=== PATIENT | female | born 1995 | race Caucasian/White ===

== ENCOUNTER 2019-09-20 08:39 | Emergency (ER) | payer OTHER ==
--- NOTE | 2019-09-20 09:04 | ED Physician Documentation ---
PD HPI ABD PAIN - Stated complaint Stated Complaint: LOWER ABD PX - History obtained from History obtained from: Patient - History of Present Illness Timing - onset: How many months ago (1) Timing - duration: Months (1) Timing - details: Gradual onset Severity Comments: mild to moderate Quality: Cramping, Other (lower abdomen) Location: Other (lower abdomen) Radiation: Other (low back, bilaterally) Improved by: Other (nothing) Worsened by: Other (her apron touching her abdomen at work) Associated symptoms: Other (denies nausea, vomiting, diarrhea, constipation, dysuria, hematuria, vaginal bleeding or discharge) Similar symptoms before: Has not had sx before - Treatment prior to arrival Treatment prior to arrival: none Review of Systems Ten Systems: 10 systems reviewed and negative Constitutional: reports: Reviewed and negative Cardiac: reports: Reviewed and negative Respiratory: reports: Reviewed and negative GI: reports: Abdominal Pain : reports: Reviewed and negative Skin: reports: Reviewed and negative Musculoskeletal: reports: Back pain Neurologic: reports: Reviewed and negative Immunocompromised: reports: Reviewed and negative PD PAST MEDICAL HISTORY - Past Medical History Past Medical History: No - Allergies Allergies/Adverse Reactions: Allergies Allergy/AdvReac Type Severity Reaction Status Date / Time Sulfa (Sulfonamide Allergy Unknown Verified 09/20/19 09:05 Antibiotics) PD ED PE NORMAL - Vitals Vital signs reviewed: Yes - General General: Alert and oriented X 3, No acute distress, Well developed/nourished - HEENT HEENT: Atraumatic, Moist mucous membranes, Pharynx benign - Neck Neck: Supple, no meningeal sign - Cardiac Cardiac: RRR - Respiratory Respiratory: No respiratory distress - Abdomen Abdomen: Normal bowel sounds, Soft, Non tender, Non distended, No organomegaly, Other (no guarding or rebound, no murphys sign, no tenderness at mcburney's point) - Female Female : Deferred - Rectal Rectal: Deferred - Back Back: No CVA TTP - Derm Derm: Normal color, Warm and dry, No rash - Extremities Extremities: No deformity, No edema - Neuro Neuro: Alert and oriented X 3 Eye Opening: Spontaneous Motor: Obeys Commands Verbal: Oriented GCS Score: 15 - Psych Psych: Normal mood, Normal affect Results - Vitals Vitals: Oxygen O2 Source Room air - Labs Labs: Laboratory Tests 09/20/19 09/20/19 09/20/19 09:20 09:30 09:30 WBC 8.2 RBC 4.58 Hgb 13.6 Hct 42.1 MCV 91.9 MCH 29.7 MCHC 32.3 RDW 12.9 Plt Count 360 MPV 9.1 Neut # (Auto) 3.5 Lymph # (Auto) 3.3 [place] # (Auto) 0.5 Eos # (Auto) 0.7 Baso # (Auto) 0.1 Absolute Nucleated RBC 0.00 Nucleated RBC % 0.0 Sodium 140 Potassium 3.8 Chloride 104 Carbon Dioxide 27 Anion Gap 9.0 BUN 13 Creatinine 0.7 Estimated GFR (MDRD) 101 Glucose 94 Calcium 9.2 Total Bilirubin 0.5 AST 22 ALT 22 Alkaline Phosphatase 24 L Total Protein 7.9 Albumin 4.2 Globulin 3.7 Albumin/Globulin Ratio 1.1 Lipase 29 Urine Color YELLOW Urine Clarity CLEAR Urine pH 6.0 Ur Specific [place] 1.020 Urine Protein NEGATIVE Urine Glucose (UA) NEGATIVE Urine Ketones NEGATIVE Urine Occult Blood SMALL H Urine Nitrite NEGATIVE Urine Bilirubin NEGATIVE Urine Urobilinogen 0.2 (NORMAL) Ur Leukocyte Esterase NEGATIVE Urine RBC 6-10 H Urine WBC 0-3 Ur Squamous Epith Cells RARE Squamous Urine Bacteria None Seen Urine Culture Comments NOT INDICATED Urine HCG, Qual NEGATIVE negative labs and UA - Rads (name of study) Pelvic US Radiology: Final report received, See rad report (negative US ) PD MEDICAL DECISION MAKING - ED course Complexity details: reviewed results, re-evaluated patient, considered differential, d/w patient ED course: ddx- ibs, ovarian cystk, ovarian torsion, , ectopic , appendicitis, cholelithiasis, dysmenorrhea 24 y/o F with 1 month of abdominal pain, no associated GI or symptoms. Normal examination, nontender abdomen, afebrile, normal vitals. Pt offered analgesics but declined them because her pain wasn't bad reporteldy. Her workup here is normal. She has normal labs and normal UA. given her lower abdominal symptoms obtain pelvic US to evaluate for an ovarian cyst though I doubt torsion given her pain is mild and she is well appearing with mo associated symptoms. Her Pelvis US is overally normal but she does have some free fluid which may indicated a ruptured cyst or follicle. She is stable for discharge and outpt f/u Discussed results with the pt and need for outpt f/u to recheck her symptoms and exam as well as return precautions in case of worsenin gor new concerning symptoms. Departure - Departure Disposition: 01 Home, Self Care Clinical Impression: Abdominal pain Qualifiers: Abdominal location: lower abdomen, unspecified Qualified Code(s): R10.30 - Lower abdominal pain, unspecified Condition: Stable Record reviewed to determine appropriate education?: Yes Instructions: Abdominal Pain Follow-Up: your, doctor [Other] Comments: Your labs, urine tests were negative. The ultrasound of your ovaries were overall normal but did show some fluid in your pelvis that can happen from a ruptured follicle or a ruptured cyst. You currently do not have any evidence of a large cyst. You do need to obtain a primary care doctor and follow up as an outpatient for your ongoing symptoms. Take tylenol and ibuprofen as need for you symptoms Discharge Date/Time: 09/20/19 12:28
[2019-09-20] MEDS ORDERED: KETOROLAC 30 MG/ML VIAL IVP STA (09:26)
[2019-09-20 09:30] LABS: BILIRUBIN,URINE NEGATIVE (NEGATIVE); GLUCOSE, URINE (UA) NEGATIVE (NEGATIVE); KETONES,URINE (UA) NEGATIVE (NEGATIVE); LEUKOCYTE ESTERASE, URINE NEGATIVE (NEGATIVE); NITRITE,URINE NEGATIVE (NEGATIVE); OCCULT BLOOD,URINE SMALL (NEGATIVE); PROTEIN,URINE NEGATIVE (NEGATIVE); UROBILINOGEN,URINE 0.2 (NORMAL) E.U./dL (NORMAL)
[2019-09-20 09:34] LABS: CLARITY,URINE CLEAR (CLEAR); HCG UR QUAL NEGATIVE
[2019-09-20 09:39] LABS: BASOPHILS # (AUTO) 0.1 10^3/uL (0.0-0.1); BASOPHILS % (AUTO) 0.9 %; EOSINOPHILS # (AUTO) 0.7 10^3/uL (0.0-0.7); EOSINOPHILS % (AUTO) 8.5 %; HGB - HEMOGLOBIN 13.6 g/dL (12.0-16.0); LYMPHOCYTES # (AUTO) 3.3 10^3/uL (1.5-3.5); MEAN CORPUSCULAR HEMOGLOBIN 29.7 pg (27.0-31.0); MEAN CORPUSCULAR HGB CONC 32.3 g/dL (32.0-36.0); MEAN CORPUSCULAR VOLUME 91.9 fL (81.0-99.0); MEAN PLATELET VOLUME 9.1 fL (7.9-10.8); MONOCYTES # (AUTO) 0.5 10^3/uL (0.0-1.0); MONOCYTES % (AUTO) 6.1 %; NEUTROPHILS # (AUTO) 3.5 10^3/uL (1.5-6.6); NEUTROPHILS % (AUTO) 43.3 %; PLT - PLATELET COUNT 360 10^3/uL (130-450); RED BLOOD COUNT 4.58 10^6/uL (4.20-5.40); RED CELL DISTRIBUTION WIDTH 12.9 % (12.0-15.0); WHITE BLOOD COUNT 8.2 x10^3/uL (4.8-10.8)
[2019-09-20 09:44] LABS: BACTERIA,URINE None Seen /HPF (None Seen); SQUAMOUS EPITHELIAL CELL,UR RARE Squamous (<= Few)
[2019-09-20 09:58] LABS: ALBUMIN 4.2 g/dL (3.2-5.5); ALBUMIN/GLOBULIN RATIO 1.1 (1.0-2.2); BILIRUBIN,TOTAL 0.5 mg/dL (0.2-1.0); CALCIUM 9.2 mg/dL (8.5-10.3); CREATININE 0.7 mg/dL (0.4-1.0); TOTAL PROTEIN 7.9 g/dL (6.7-8.2)
[2019-09-20 11:57] VITALS: BP 120/75
--- NOTE | 2019-09-20 11:58 | Ultrasound Report ---
Reason: R pelvic pain, adnexal pain Procedure Date: 09/20/2019 Accession Number: [id number] / [id number] Procedure: US - Pelvic w/Transvag+Doppler Ltd CPT Code: Final Report FULL RESULT: EXAM: PELVIC ULTRASOUND WITH DOPPLERS CLINICAL HISTORY: R pelvic pain, adnexal pain. COMPARISON: None. TECHNIQUE: Realtime transabdominal imaging performed to identify the uterus and adnexa and as an overview of other pelvic structures, followed by transvaginal imaging for better assessment of the endometrium and adnexa, with static image documentation. Color flow imaging and Doppler spectral analysis was performed to evaluate blood flow to the ovaries given pelvic pain . FINDINGS: Uterus: 7.3 x 3.3 x 3.8 cm, volume 47.9 cc. Anteverted position. Normal overall size and echotexture. Masses: None. Endometrium: 2.6 mm. Normal. Cervix: Unremarkable. Right Ovary: 2.5 x 2.2 x 1.7 cm, volume 4.9 cc. Normal echotexture. Arterial and venous blood flow are present. PSV 13 cm/sec. RI 0.61. Adnexa are unremarkable. Left Ovary: 2.5 x 1.5 x 2.5 cm, volume 4.9 cc. Normal echotexture. Arterial and venous blood flow are present. PSV 7.5 cm/sec. RI 0.55. Adnexa are unremarkable. Free Fluid: Mild to moderate free fluid in the cul-de-sac. Other: None. IMPRESSION: 1. Unremarkable uterus and endometrium. 2. Arterial and venous blood flow are present to the ovaries bilaterally. No sonographic evidence for ovarian torsion. 3. Mild to moderate free fluid in the cul-de-sac is possibly physiologic. RADIA
== END 2019-09-20 12:28 | disposition home or self-care (01) ==
LOC: ED 08:39
DX: R10.30 Lower abdominal pain, unspecified (principal)
CPT/HCPCS: 36415; 76830; 76856; 80053; 81001; 81025; 83690; 85025; 87086; 93976; 99283; 99284

== ENCOUNTER 2021-10-12 13:18 | Emergency (ER) | payer OTHER ==
[2021-10-12 14:21] LABS: BILIRUBIN,URINE NEGATIVE (NEGATIVE); GLUCOSE, URINE (UA) NEGATIVE (NEGATIVE); KETONES,URINE (UA) NEGATIVE (NEGATIVE); LEUKOCYTE ESTERASE, URINE NEGATIVE (NEGATIVE); NITRITE,URINE NEGATIVE (NEGATIVE); OCCULT BLOOD,URINE TRACE-INTA (NEGATIVE); PROTEIN,URINE NEGATIVE (NEGATIVE); UROBILINOGEN,URINE 0.2 (NORMAL) E.U./dL (NORMAL)
[2021-10-12 14:28] LABS: CLARITY,URINE CLEAR (CLEAR); HCG UR QUAL NEGATIVE
[2021-10-12 14:32] LABS: BASOPHILS # (AUTO) 0.1 10^3/uL (0.0-0.1); BASOPHILS % (AUTO) 0.9 %; EOSINOPHILS # (AUTO) 0.5 10^3/uL (0.0-0.7); EOSINOPHILS % (AUTO) 5.1 %; HCT - HEMATOCRIT 43.2 % (37.0-47.0); LYMPHOCYTES # (AUTO) 4.1 10^3/uL (1.5-3.5); LYMPHOCYTES % (AUTO) 42.1 %; MEAN CORPUSCULAR HEMOGLOBIN 28.9 pg (27.0-31.0); MEAN CORPUSCULAR HGB CONC 32.4 g/dL (32.0-36.0); MEAN CORPUSCULAR VOLUME 89.1 fL (81.0-99.0); MEAN PLATELET VOLUME 8.8 fL (7.9-10.8); MONOCYTES # (AUTO) 0.6 10^3/uL (0.0-1.0); MONOCYTES % (AUTO) 5.8 %; NEUTROPHILS # (AUTO) 4.5 10^3/uL (1.5-6.6); NEUTROPHILS % (AUTO) 45.9 %; PLT - PLATELET COUNT 375 10^3/uL (130-450); RED BLOOD COUNT 4.85 10^6/uL (4.20-5.40); RED CELL DISTRIBUTION WIDTH 12.9 % (12.0-15.0); WHITE BLOOD COUNT 9.7 x10^3/uL (4.8-10.8)
[2021-10-12 14:45] LABS: ALBUMIN 4.9 g/dL (3.2-5.5); ALBUMIN/GLOBULIN RATIO 1.5 (1.0-2.2); BILIRUBIN,TOTAL 1.4 mg/dL (0.2-1.0); CALCIUM 9.3 mg/dL (8.5-10.3); CREATININE 0.8 mg/dL (0.4-1.0); POTASSIUM 4.4 mmol/L (3.5-5.0); TOTAL PROTEIN 8.1 g/dL (6.7-8.2)
--- NOTE | 2021-10-12 16:32 | ED Physician Documentation ---
PD HPI ABD PAIN - Stated complaint Stated Complaint: LT SIDE/BACK PX - Chief complaint Chief Complaint: Abd Pain - History obtained from History obtained from: Patient - Additional information Additional information: Previously healthy 26-year-old woman with no history of abdominal surgeries has had about a week of left-sided abdominal pain that radiates to the back. It does not change with eating. She tried cutting gluten out of her diet which was ineffective. She has hard stools but is pooping every day so she does not think she is constipated. She is due for her menses but is not late yet. Review of Systems Constitutional: reports: Reviewed and negative Eyes: reports: Reviewed and negative Ears: reports: Reviewed and negative Nose: reports: Reviewed and negative Throat: reports: Reviewed and negative Cardiac: reports: Reviewed and negative Respiratory: reports: Reviewed and negative PD PAST MEDICAL HISTORY - Past Surgical History Past Surgical History: No - Present Medications Home Medications: Ambulatory Orders Medication Instructions Recorded Confirmed Amox/Clav 875/125 [Augmentin] 1 each PO Q12H #14 tablet 05/21/20 - Allergies Allergies/Adverse Reactions: Allergies Allergy/AdvReac Type Severity Reaction Status Date / Time Sulfa (Sulfonamide Allergy Unknown Verified 10/12/21 13:47 Antibiotics) - Social History Does the pt smoke?: No Smoking Status: Never smoker Does the pt drink ETOH?: Yes Does the pt have substance abuse?: No - Immunizations Immunizations are current?: No Immunizations: TDAP >10years/unknown - POLST Patient has POLST: No PD ED PE NORMAL - Vitals Vital signs reviewed: Yes - General General: Alert and oriented X 3, No acute distress - Cardiac Cardiac: RRR, No murmur - Respiratory Respiratory: No respiratory distress, Clear bilaterally - Abdomen Abdomen: Other (Mild tenderness basically the entire left side of the abdomen without surgical signs and normal bowel sounds.) - Derm Derm: Normal color, Warm and dry - Neuro Neuro: Alert and oriented X 3, Normal speech Results - Vitals Vitals: Vital Signs - 24 hr 10/12/21 10/12/21 13:44 17:00 Temperature 36.6 C 36.6 C Heart Rate 98 88 Respiratory 16 16 Rate Blood Pressure 133/58 H 126/60 O2 Saturation 99 99 Oxygen O2 Source Room air - Labs Labs: Laboratory Tests 10/12/21 10/12/21 10/12/21 14:00 14:29 14:29 WBC 9.7 RBC 4.85 Hgb 14.0 Hct 43.2 MCV 89.1 MCH 28.9 MCHC 32.4 RDW 12.9 Plt Count 375 MPV 8.8 Neut # (Auto) 4.5 Lymph # (Auto) 4.1 H [place] # (Auto) 0.6 Eos # (Auto) 0.5 Baso # (Auto) 0.1 Absolute Nucleated RBC 0.00 Nucleated RBC % 0.0 Sodium 139 Potassium 4.4 Chloride 104 Carbon Dioxide 26 Anion Gap 9.0 BUN 10 Creatinine 0.8 Estimated GFR (MDRD) 85 L Glucose 81 Calcium 9.3 Total Bilirubin 1.4 H AST 30 ALT 25 Alkaline Phosphatase 33 L Total Protein 8.1 Albumin 4.9 Globulin 3.2 Albumin/Globulin Ratio 1.5 Lipase 25 Urine Color YELLOW Urine Clarity CLEAR Urine pH 8.0 H Ur Specific [place] 1.015 Urine Protein NEGATIVE Urine Glucose (UA) NEGATIVE Urine Ketones NEGATIVE Urine Occult Blood TRACE-INTA Urine Nitrite NEGATIVE Urine Bilirubin NEGATIVE Urine Urobilinogen 0.2 (NORMAL) Ur Leukocyte Esterase NEGATIVE Ur Microscopic Review NOT INDICATED Urine Culture Comments NOT INDICATED Urine HCG, Qual NEGATIVE PD MEDICAL DECISION MAKING - ED course ED course: 26-year-old woman with left-sided abdominal pain, some tenderness on exam but work-up here was negative. She does have a sensation of constipation that may be causative. She has taken a single dose of MiraLAX and is advised to continue this but given also close return precautions. Departure - Departure Disposition: 01 Home, Self Care Condition: Good Record reviewed to determine appropriate education?: Yes Instructions: ED Abdominal Pain Female Non-Specific Abdominal Pain Comments: Keep taking the MiraLAX, return this time tomorrow if not better, anytime if worsening. Follow-up with your primary care physician, next available appointment. Forms: Activity restrictions
[2021-10-12] MEDS ORDERED: iohexoL-300 100 ML VIAL ONE (16:43)
[2021-10-12] MEDS ORDERED: iohexoL-300 100 ML VIAL IVP ONE (16:57)
--- NOTE | 2021-10-12 17:14 | CT Report ---
PROCEDURE: Abdomen/Pelvis W INDICATIONS: IV only, L abd pain CONTRAST: IV CONTRAST: Isovue 300 ml: 100 PO CONTRAST: *NO PO CONTRAST TECHNIQUE: After the administration of IV contrast, 5 mm thick sections acquired from the diaphragms to the symp hysis. 5 mm thick coronal and sagittal reformats were acquired. For radiation dose reduction, the f ollowing was used: automated exposure control, adjustment of mA and/or kV according to patient size. COMPARISON: None. FINDINGS: Image quality: Excellent. ABDOMEN: Lung bases: Lung bases are clear. Heart size is normal. Solid organs: Liver and spleen are normal in size and enhancement. Gallbladder wall does not appear thickened. Biliary system is non dilated. Pancreas enhances normally. No adrenal nodules. Kidn eys demonstrate normal size and enhancement, without hydronephrosis. Peritoneum and bowel: In this patient with this given history, scrutiny is given to diverticulitis. None can be seen. Bowel loops demonstrate normal wall thickness and caliber. No free fluid or air. Nodes and vessels: No retroperitoneal or mesenteric adenopathy by size criteria. Aorta and inferior vena cava are normal in size. Miscellaneous: No ventral hernias. PELVIS: Genitourinary: Bladder wall thickness is normal. The uterus demonstrates an unremarkable appearance for age. No adnexal masses are seen. Miscellaneous: No inguinal hernias or adenopathy. Bones: No suspicious bony lesions. No vertebral body compression fractures. Bilateral L5 pars defe cts can be seen, with associated minimal anterolisthesis at the L5-S1 level. Mild levoconvex scolioti c curvature is seen. IMPRESSION: A cause of the patient's presenting history of left-sided abdominal pain is not seen. Negative for diverticulitis. Incidental note is made of: Levoconvex scoliotic curvature Bilateral L5 pars defects Minimal L5-S1 anterolisthesis Reviewed by: Xiang Harvey MD on 10/12/2021 4:12 PM [place] Approved by: Xiang Harvey MD on 10/12/2021 4:12 PM [facility] Station ID: [id number]
[2021-10-12 17:19] VITALS: BP 126/60
== END 2021-10-12 17:39 | disposition home or self-care (01) ==
LOC: ED 13:18
DX: R10.9 Unspecified abdominal pain (principal)
CPT/HCPCS: 36415; 74177; 80053; 81003; 81025; 83690; 85025; 99283; 99284; Q9967; 81001; 87086

== ENCOUNTER 2022-04-07 08:00 | Outpatient (CLI) | payer OTHER | END 2022-04-07 23:59 | disposition home or self-care (01) | LOC: LAB.N 08:00 | PROVIDERS: ATTEND Family Medicine | DX: J02.9 Acute pharyngitis, unspecified (principal) | CPT/HCPCS: 81599; 87110; 87140 ==